=== PATIENT | male | born 1950 | race American Indian/Alaskan Native ===

== ENCOUNTER 2017-02-05 06:29 | Day surgery (SDC) | payer MEDICARE ==
[2017-02-05 06:50] VITALS: BMI 24.2
[2017-02-05] MEDS ORDERED: Propofol 10 mg/ml Inj (20 ML) ONE (07:59)
[2017-02-05] MEDS ORDERED: Lactated Ringer's 500 ML IV ONE ×2 (08:01)
--- NOTE | 2017-02-05 08:14 | CP.SDSHP ---
Same Day Surgery H & P - History Proposed Procedure: colonoscopy Pre-Op Diagnosis: h/o colon polyps. Elevated CEA level - Previous Medical/Surgical History Cardiac: Other (hypercholesterolemia, GERD, Barretts esophagus, ) Misc: Other (BPH, colon polyps) - Allergies Allergies: Allergies No Known Allergies Allergy (Verified 06/02/14 07:12) - Physical Exam Vital Signs: Vital Signs 02/05/17 06:50 Temperature 97.7 F Pulse Rate 71 Respiratory 19 Rate Blood Pressure 155/95 H O2 Sat by Pulse 100 Oximetry Mental Status: Alert & Oriented x3 Neuro: WNL Heart: WNL Lungs: WNL GI: WNL - Impression Impression: h/o colon polyps. Elevated CEA level Pt. Evaluated Today:Candidate for Anesthesia & Procedure: Yes - Date & Time Date: 02/05/17 Time: 08:13 Short Stay Discharge - Short Stay Discharge Admitting Diagnosis/Reason for Visit: MCCRARY'S ESOPHAGUS / ELEVATED CEA Disposition: HOME/ ROUTINE
[2017-02-05 08:41] VITALS: TEMP 97.3
[2017-02-05 10:58] VITALS: BP 131/77; PULSE 71; RESP 16; O2SAT 98
== END 2017-02-05 09:50 | disposition home or self-care (01) ==
LOC: C.ENDO 06:29
PROVIDERS: ATTEND Internal Medicine Gastroenterology
DX: K63.5 Polyp of colon (principal); K64.1 Second degree hemorrhoids; R97.0 Elevated carcinoembryonic antigen [CEA]; E78.00 Pure hypercholesterolemia, unspecified; K21.9 Gastro-esophageal reflux disease without esophagitis; N40.0 Benign prostatic hyperplasia without lower urinary tract symptoms
CPT/HCPCS: 45385; 88305; J2704; J7120